=== PATIENT | female | born 1995 | race Caucasian/White ===

== ENCOUNTER 2016-06-21 14:38 | Emergency (ER) | payer OTHER ==
[2016-06-21 14:55] VITALS: TEMP 98.1
--- NOTE | 2016-06-21 15:24 | UCPHY ---
H & P Patient Type: Established Chief Complaint Nursing Narrative: bilateral ear pain HPI/ROS: HPI CHIEF COMPLAINT: Bilateral ear pain HISTORY OF PRESENT ILLNESS: This patient very pleasant 20-year-old female, denies having any significant medical history or surgical history, does not take any daily medications, presents emergency room with 1 week of bilateral ear pain progressively getting worse. She tells me about a month ago she had the flu and had the same symptoms however does not have a fever does not have muscle aches does not have joint pain. Her main complaint today is bilateral ear pain. Denies drainage or ear trauma, denies headache, neck pain, sore throat , cough, fever vomiting. Past Medical History: DVT Past Surgical History: No significant surgical history Social History: Denies daily use drugs alcohol tobacco products Family History: Noncontributory ROS REVIEW OF SYSTEMS: A comprehensive 10 point review of systems is otherwise negative aside from elements mentioned in the history of present illness. Exam Constitutional triage nursing summary reviewed, vital signs reviewed, awake/ alert. Eyes normal conjunctivae and sclera, EOMI, PERRLA. HENT bilateral TMs left worse than right has mild erythema fluid behind both TMs, no disc bulge, no mastoid tenderness, atraumatic, moist mucus membranes, no epistaxis, neck supple/ no meningismus, no raccoon eyes. Respiratory clear to auscultation bilaterally, normal breath sounds, no respiratory distress, no wheezing. Cardiovascular rate normal, regular rhythm, no murmur, no edema, distal pulses normal. Gastrointestinal soft, non-tender, no rebound, no guarding, normal bowel sounds, no distension, no pulsatile mass. Genitourinary no CVA tenderness. Musculoskeletal no midline vertebral tenderness, full range of motion, no calf swelling, no tenderness of extremities, no meningismus, good pulses, neurovascularly intact. Skin pink, warm, & dry, no rash, skin atraumatic. Neurologic awake, alert and oriented x 3, AAOx3, moves all 4 extremities equally, motor intact, sensory intact, CN II-XII intact, normal cerebellar, normal vision, normal speech. Psychiatric normal mood/affect. Heme/Lymph/Immune no lymphadenopathy. Differential Diagnosis: Includes but is not limited to in a particular order otitis media, inner ear effusion, sinusitis Medical Decision Making: this patient be placed on ibuprofen for pain control, azithromycin antibiotic for otitis media, as well as guaifenesin decongestion. She understands she has worsening symptoms to follow up with Ear Nose and Throat or return to the urgent care/emergency room. Source: Patient - Personal History LMP (Females 10-55): 8-14 Days Ago Current Tetanus/Diphtheria Vaccine: Yes - Medical/Surgical History Hx Asthma: No Hx Chronic Respiratory Disease: No Hx Diabetes: No Hx Cardiac Disease: No Hx Renal Disease: No Hx Cirrhosis: No Hx Alcoholism: No Hx HIV/AIDS: No Hx Splenectomy or Spleen Trauma: No Other PMH: dvt/ - Family History Significant Family History: No pertinent family hx - Social History Smoking Status: Never smoked Constitutional: Initial Vital Signs Temperature (C) 36.7 C 06/21/16 14:52 Heart Rate 72 06/21/16 14:52 Respiratory Rate 18 06/21/16 14:52 Blood Pressure 148/97 H 06/21/16 14:52 O2 Sat (%) 97 06/21/16 14:52 O2 Delivery Mode Room Air Allergies/Adverse Reactions: Sulfa (Sulfonamide Antibiotics) Allergy (Verified 06/21/16 14:51) tramadol Allergy (Verified 06/21/16 14:51) Home Medications: Medication Instructions Recorded AZITHROMYCIN [Z-PACK] 250 mg PO DAILY #6 tab 06/21/16 Guaifenesin [Guaifenesin ER] 600 mg PO BID #14 tab.er.12h 06/21/16 Ibuprofen [Motrin (*)] 800 mg PO Q6-8PRN #7 tab 06/21/16 Departure - Departure Disposition: Home, Routine, Self-Care Clinical Impression: Otitis media Qualifiers: Otitis media type: suppurative Laterality: bilateral Chronicity: acute Recurrence: not specified as recurrent Spontaneous tympanic membrane rupture: without spontaneous rupture Qualified Code(s): H66.003 - Acute suppurative otitis media without spontaneous rupture of ear drum, bilateral Condition: Good Instructions: Otitis Media (ED) Additional Instructions: 1. Drink lots of fluids stay well-hydrated 2. Return to the urgent care if he worsening symptoms questions concerns I also have referred you to ear nose and throat. Referrals: NONE *PRIMARY CARE P,. [Primary Care Provider] - As per Instructions Mao Barrett MD [Medical Doctor] - As per Instructions Prescriptions: AZITHROMYCIN [Z-PACK] 250 mg PO DAILY #6 tab Guaifenesin [Guaifenesin ER] 600 mg PO BID #14 tab.er.12h Ibuprofen [Motrin (*)] 800 mg PO Q6-8PRN #7 tab - PQRS PQRS Measurement: n/a
[2016-06-21 16:02] VITALS: BP 143/85; PULSE 77; RESP 20; O2SAT 95
== END 2016-06-21 15:59 | disposition home or self-care (01) ==
LOC: CED 14:38
DX: H66.003 Acute suppurative otitis media without spontaneous rupture of ear drum, bilateral (principal); Z88.2 Allergy status to sulfonamides
CPT/HCPCS: 99214-PO; G0463-PO